=== PATIENT | female | born 1970 | race Caucasian/White ===

== ENCOUNTER 2018-03-27 10:35 | Emergency (ER) | payer OTHER ==
[~2018-03-27] VITALS: Ht 147.3 cm; Wt 70.5 kg
[~2018-03-27 10:35] MED LIST: CIPRO500 MG PO; KEFLEX500 MG PO; NORCO 5-325 TA1 EACH PO; PHENAZOPYRIDIN200 M2 PO; PROZAC20 MG PO; RISPERDAL4 MG PO; SYNTHROID50 MCG PO; TRILEPTAL600 MG PO; ZOFRAN ODT4 MG PO
[2018-03-27 11:04] LABS: ABSOLUTE BASOPHILS 0.1 thou/uL (0.0-0.2); ABSOLUTE EOSINOPHILS 0.1 thou/uL (0.0-0.7); ABSOLUTE LYMPHOCYTES 1.7 thou/uL (0.8-5.3); ABSOLUTE MONOCYTES 0.3 thou/uL (0.0-1.2); ABSOLUTE NEUTROPHILS 3.2 thou/uL (1.6-8.1); EOSINOPHILS 2.2 %; HEMATOCRIT 41.3 % (37.0-47.0); HEMOGLOBIN 13.7 gm/dL (12.0-15.0); LYMPHOCYTES 30.9 %; MCH 31.5 pg (26.0-34.0); MCHC 33.2 g/dL (28.0-37.0); MCV 94.8 fL (80.0-100.0); MONOCYTES 6.4 %; MPV 6.9 fl. (7.2-11.1); NUCLEATED RBCS 0 /100WBC; PLATELET COUNT* 348 thou/uL (150-400); POLYS 59.5 %; RBC 4.35 mil/uL (4.20-5.00); RDW-CV 13.4 % (10.5-14.5); WBC 5.4 thou/uL (4.0-11.0)
[2018-03-27 11:17] LABS: ANION GAP 12 mmol/L (7-16); BUN 9 mg/dL (7-18); CHLORIDE 104 mmol/L (98-107); CO2 24 mmol/L (21-32); CREATININE 0.6 mg/dL (0.6-1.3); GLUCOSE 114 mg/dL (70-99); POTASSIUM 3.7 mmol/L (3.5-5.1); SODIUM 140 mmol/L (136-145)
[2018-03-27 11:24] LABS: ALBUMIN 3.7 g/dL (3.4-5.0); ALKALINE PHOSPHATASE 75 U/L (46-116); SGOT 26 U/L (15-37); SGPT 51 U/L (30-65); TOTAL BILIRUBIN 0.3 mg/dL (<0.1-1.0); TOTAL PROTEIN 7.1 g/dL (6.4-8.2); TROPONIN-I LEVEL <0.06 ng/mL (<0.06)
[2018-03-27] MEDS ORDERED: ATIVAN1 MG PO (12:22)
[2018-03-27 12:31] VITALS: BP 122/68
--- NOTE | 2018-03-27 16:01 | EKG ---
[place] [address] ELECTROCARDIOGRAM REPORT Name: LUCERO TINAJERO Room: [facility]#: [id number] Admission: 03/27/18 Attend Phys: Discharge: 03/27/18 Date of : 72 Report #: [id number] THIS REPORT FOR: //name// [facility] ED Test Date: 2018-03-27 Test Time: 10:59:02 Pat Name: LUCERO TINAJERO Department: Room: Gender: F Side Guider: Susan FERNÁNDEZ : 1970 Requested By: Ronaldo Marley Order Number: [id number] MD: Jac Owen Measurements Intervals [place] Rate: 88 P: 29 RI: 166 QRS: -10 QRSD: 98 T: 28 QT: 369 QTc: 447 Interpretive Statements Sinus rhythm Low voltage, precordial leads RSR' in V1 or V2, right VCD or RVH No previous ECG available for comparison Electronically Signed On 03-27-2018 16:00:59 STAFF COUNSEL by Jac Owen [email or web address] <ELECTRONICALLY SIGNED> By: Jac Owen MD, [facility] 03/27/18 1600 1059 1059 Jac Owen MD, FACC /EPI
== END 2018-03-27 12:33 | disposition home or self-care (01) ==
LOC: M.ERS 10:35
PROVIDERS: Emergency Medicine Emergency Medical Services
DX: R56.9 Unspecified convulsions (principal); F41.9 Anxiety disorder, unspecified; F32.9 Major depressive disorder, single episode, unspecified; M79.7 Fibromyalgia; Z90.49 Acquired absence of other specified parts of digestive tract; Z98.890 Other specified postprocedural states; Z88.2 Allergy status to sulfonamides; Z88.5 Allergy status to narcotic agent

== ENCOUNTER 2018-04-03 12:11 | Emergency (ER) | payer OTHER ==
[~2018-04-03] VITALS: Ht 142.2 cm; Wt 70.3 kg
[~2018-04-03 12:11] MED LIST changes: +ATIVAN1 MG PO
[2018-04-03] MEDS ORDERED: NABUMETONE 750750 M1 PO (15:33)
[2018-04-03] MEDS ORDERED: ONDANSETRON HCL4 M2 PO (15:33)
[2018-04-03 16:28] VITALS: BP 124/68
== END 2018-04-03 16:30 | disposition home or self-care (01) ==
LOC: M.ERS 12:11
DX: S82.841A Displaced bimalleolar fracture of right lower leg, initial encounter for closed fracture (principal); S09.90XA Unspecified injury of head, initial encounter; W00.0XXA Fall on same level due to ice and snow, initial encounter; Y93.89 Activity, other specified; Y92.89 Other specified places as the place of occurrence of the external cause; Y99.8 Other external cause status